=== PATIENT | male | born 1960 | race African-American/Black ===

== ENCOUNTER 2018-08-21 10:29 | Inpatient (IN) | payer OTHER ==
[2018-08-21] MEDS: SODIUM CHLORIDE 0.9% 500 ML BAG IV* (10:55)
[2018-08-21] MEDS: NORepinephrine 8MG/250 ML (PMX 250 ML IV (10:56)
[2018-08-21] MEDS: AMIODARONE 900 MG in DEXTROSE 5% 482 ML IV (11:05)
[2018-08-21] MEDS: SODIUM CHLORIDE 0.9% 1L BAG IV* (11:06)
[2018-08-21 11:14] LABS: WHITE BLOOD COUNT 14.4 10^3/ul (4.8-10.8)
[2018-08-21 11:14] LABS: ABNORMAL IP MESSAGE 1; HEMATOCRIT 21.3 % (42.0-52.0); MEAN CORPUSCULAR HEMOGLOBIN 28.6 pg (29.0-33.0); MEAN CORPUSCULAR HGB CONC 29.6 g/dl (32.0-37.0); MEAN CORPUSCULAR VOLUME 96.8 fl (82.0-101.0); MEAN PLATELET VOLUME 10.9 fl (7.4-10.4); PLATELET COUNT 322 10^3/UL (140-415); POSITIVE DIFF @See below; RED CELL DISTRIBUTION WIDTH 14.1 % (11.5-14.5)
[2018-08-21 11:22] LABS: AADO2 Arterial 377.8 mmHg (7.0-24.0); ADD MAN DIFF? YES; Allen Test ACCEPTAB; Arterial Base Excess -2.5 mmol/L (-3.0-3); Arterial Blood Gas Oxygen Sat 99.5 mmHG (95.0-98.0); Arterial COHb 0.3 % (0.0-3.0); Arterial Fraction of Oxyhgb 99.1 % (93.0-99.0); Arterial HCO3 25.4 mmol/L (22.0-26.0); Arterial MetHb 0.1 % (0.0-1.5); Arterial pCO2 59.9 mmhg (35-45); HEMOGLOBIN 6.3 g/dl (14.0-18.0); MODE VENT - AC; Site LB
[2018-08-21 11:33] LABS: PROTIME 17.4 Sec (11.9-14.9); PT RATIO 1.4
[2018-08-21 11:34] LABS: PARTIAL THROMBOPLASTIN TIME 28.5 Sec (23.0-35.0)
[2018-08-21] MEDS: PIPER-TAZO 3.375 GM IV (PMX) 100 ML IVPB ×2 (11:35→22:10)
[2018-08-21 11:36] LABS: MAGNESIUM 2.4 mg/dl (1.7-2.5)
[2018-08-21 11:36] LABS: PHOSPHORUS 9.4 mg/dl (2.5-4.9)
[2018-08-21] MEDS: VANCOMYCIN 1 GM (PMX) 250 ML IVPB (12:10)
[2018-08-21 12:14] LABS: ADD UMIC YES; UR ASCORBIC ACID 40 mg/dL (NEGATIVE); UR BILIRUBIN (Dip) NEGATIVE (NEGATIVE); UR BLOOD (Dip) 1+ mg/dL (NEGATIVE); UR CLARITY SLIGHTLY CLOUDY (CLEAR); UR COLOR YELLOW (YELLOW); UR GLUCOSE (Dip) 3+ mg/dL (NEGATIVE); UR KETONES (Dip) 1+ mg/dL (NEGATIVE); UR LEUKOCYTE ESTERASE (Dip) NEGATIVE Leu/ul (NEGATIVE); UR MUCUS FEW /HPF (NONE SEEN); UR NITRITE (Dip) NEGATIVE (NEGATIVE); UR RBC 20 /HPF (0-5); UR SPECIFIC GRAVITY (Dip) 1.017 (1.003-1.030); UR TOTAL PROTEIN (Dip) 2+ mg/dl (NEGATIVE); UR UROBILINOGEN (Dip) NEGATIVE (NEGATIVE); UR WBC 3 /HPF (0-5)
[2018-08-21 12:16] LABS: INR 1.33; PROTIME 16.7 Sec (11.9-14.9); PT RATIO 1.3
[2018-08-21 12:21] LABS: ALANINE AMINOTRANSFERASE 121 IU/L (13-69); ALBUMIN 2.1 g/dl (3.3-4.9); ALBUMIN/GLOBULIN RATIO 0.61; ALKALINE PHOSPHATASE 144 IU/L (42-121); AMYLASE 42 U/L (11-123); ANION GAP 15 (5-13); ASPARTATE AMINO TRANSFERASE 394 IU/L (15-46); BILIRUBIN,INDIRECT 0.1 mg/dl (0-1.1); BILIRUBIN,TOTAL 0.1 mg/dl (0.2-1.3); BLOOD UREA NITROGEN 24 mg/dl (7-20); CALCIUM 9.6 mg/dl (8.4-10.2); CARBON DIOXIDE 27 mmol/L (21-31); CHLORIDE 94 mmol/L (97-110); CREATININE 0.62 mg/dl (0.61-1.24); Estimated GFR > 60 mL/min (>60); LIPASE 115 U/L (23-300); POTASSIUM 4.8 mmol/L (3.5-5.1); SODIUM 136 mmol/L (135-144); TOTAL PROTEIN 5.5 g/dl (6.1-8.1)
[2018-08-21 12:28] LABS: GLUCOSE 406 mg/dl (70-220)
[2018-08-21 12:32] LABS: ANISOCYTOSIS 1+ (0-0); BAND NEUTROPHILS #M 2.1 10^3/ul (0.0-0.6); BAND NEUTROPHILS % (M) 15 % (0-4); BASOPHIL #M 0.1 10^3/ul (0.0-0.0); BASOPHILS % (M) 1 % (0-2); EOSINOPHILS % (M) 1 % (0-7); GIANT THROMBO% (M) 1 % (0-0); LYMPHOCYTES #M 1.7 10^3/ul (0.8-2.9); LYMPHOCYTES % (M) 12 % (15-51); METAMYELOCYTES #M 0.1 10^3/ul (0.0-0.0); METAMYELOCYTES %M 1 % (0-0); MONOCYTE #M 0.2 10^3/ul (0.3-0.9); MONOCYTES % (M) 2 % (0-11); MYELOCYTES #M 0.1 10^3/ul (0.0-0.0); MYELOCYTES % (M) 1 % (0-0); PLATELET ESTIMATE NORMAL; POLYCHROMASIA 2+ (0-0); SEGMENTED NEUTROPHILS (M) % 67 % (39-77); SMUDGE%M 76 % (0-0); TOXIC GRANULATION 1+ (0-0)
[2018-08-21 12:33] LABS: TROPONIN-I < 0.012 ng/ml (0.000-0.120)
[2018-08-21 13:28] LABS: IMMEDIATE SPIN CROSSMATCH 1 2
[2018-08-21] MEDS ORDERED: NACL 0.9% 3 ML SYG IV (13:30)
[2018-08-21] MEDS: SOD CHLORIDE 0.9% 1,000 ML IV (14:42)
[2018-08-21] MEDS: HEPARIN 5,000 UNIT/0.5 ML VIAL SC (14:47)
[2018-08-21] MEDS ORDERED: VANCOMYCIN IV PER PHARMACY XX (16:00)
[2018-08-21] MEDS ORDERED: GLUCAGON 1 MG INJ IM (18:00)
[2018-08-21] MEDS ORDERED: GLUCOSE GEL 15 GRAM TUBE BUCCAL (18:00)
[2018-08-21] MEDS ORDERED: GLUCOSE GEL 15 GRAM TUBE PO ×2 (18:00)
[2018-08-21] MEDS ORDERED: PENDING SANTYL ORDER FOR WOUND CARE XX (18:30)
[2018-08-21 18:56] LABS: WHITE BLOOD COUNT 18.1 10^3/ul (4.8-10.8)
[2018-08-21 18:56] LABS: ABNORMAL IP MESSAGE 1; HEMATOCRIT 23.2 % (42.0-52.0); HEMOGLOBIN 7.2 g/dl (14.0-18.0); MEAN CORPUSCULAR VOLUME 90.3 fl (82.0-101.0); MEAN PLATELET VOLUME 10.9 fl (7.4-10.4); PLATELET COUNT 321 10^3/UL (140-415); POSITIVE DIFF @See below; RED BLOOD COUNT 2.57 10^6/ul (4.70-6.10); RED CELL DISTRIBUTION WIDTH 13.9 % (11.5-14.5)
[2018-08-21] MEDS: INSULIN ASPART [NOVOLOG] 3 ML PEN SC ×2 (19:04→21:03)
[2018-08-21 19:10] LABS: ADD MAN DIFF? YES
[2018-08-21 20:23] LABS: BAND NEUTROPHILS #M 4.7 10^3/ul (0.0-0.6); BAND NEUTROPHILS % (M) 26 % (0-4); GIANT THROMBO% (M) 3 % (0-0); LYMPHOCYTES #M 0.9 10^3/ul (0.8-2.9); LYMPHOCYTES % (M) 5 % (15-51); MONOCYTE #M 0.3 10^3/ul (0.3-0.9); MONOCYTES % (M) 2 % (0-11); PLATELET ESTIMATE NORMAL; POLYCHROMASIA 2+ (0-0); SEGMENTED NEUTROPHILS (M) % 67 % (39-77); SMUDGE%M 2 % (0-0)
[2018-08-21] MEDS ORDERED: HEPARIN 5,000 UNIT/0.5 ML VIAL (20:45)
[2018-08-21] MEDS: ATORVASTATIN 10 MG TAB PO (20:57)
[2018-08-21] MEDS: HEPARIN 5,000 UNIT/1 ML VIAL SC (20:58)
[2018-08-22] MEDS: VANCOMYCIN 1 GM 250 ML IVPB ×2 (00:03→12:30)
[2018-08-22] MEDS: ACCU-CHEK XX (00:55)
[2018-08-22] MEDS: INSULIN ASPART [NOVOLOG] 3 ML PEN SC ×5 (04:33→21:00)
[2018-08-22 05:02] LABS: ABNORMAL IP MESSAGE 1; HEMATOCRIT 20.7 % (42.0-52.0); MEAN CORPUSCULAR HGB CONC 31.9 g/dl (32.0-37.0); MEAN CORPUSCULAR VOLUME 87.7 fl (82.0-101.0); MEAN PLATELET VOLUME 10.8 fl (7.4-10.4); PLATELET COUNT 297 10^3/UL (140-415); POSITIVE DIFF @See below; RED BLOOD COUNT 2.36 10^6/ul (4.70-6.10); RED CELL DISTRIBUTION WIDTH 14.2 % (11.5-14.5)
[2018-08-22 05:31] LABS: ADD MAN DIFF? YES
[2018-08-22 05:32] LABS: HEMOGLOBIN 6.6 g/dl (14.0-18.0)
[2018-08-22 05:35] LABS: ALANINE AMINOTRANSFERASE 82 IU/L (13-69); ALBUMIN 2.3 g/dl (3.3-4.9); ALBUMIN/GLOBULIN RATIO 0.67; ALKALINE PHOSPHATASE 154 IU/L (42-121); ANION GAP 7 (5-13); ASPARTATE AMINO TRANSFERASE 152 IU/L (15-46); BILIRUBIN,INDIRECT 0.3 mg/dl (0-1.1); BILIRUBIN,TOTAL 0.3 mg/dl (0.2-1.3); BLOOD UREA NITROGEN 32 mg/dl (7-20); CALCIUM 8.2 mg/dl (8.4-10.2); CARBON DIOXIDE 34 mmol/L (21-31); CHLORIDE 97 mmol/L (97-110); CREATININE 0.75 mg/dl (0.61-1.24); Estimated GFR > 60 mL/min (>60); GLUCOSE 298 mg/dl (70-220); PHOSPHORUS 3.8 mg/dl (2.5-4.9); POTASSIUM 4.4 mmol/L (3.5-5.1); SODIUM 138 mmol/L (135-144); TOTAL PROTEIN 5.7 g/dl (6.1-8.1)
[2018-08-22] MEDS: PIPER-TAZO 3.375 GM IV (PMX) 100 ML IVPB ×3 (05:56→21:46)
[2018-08-22] MEDS: PANTOPRAZOLE 40 MG INJ IV (05:57)
[2018-08-22] MEDS: SOD CHLORIDE 0.9% 1,000 ML IV ×2 (05:57→21:38)
[2018-08-22 06:43] LABS: ANISOCYTOSIS 1+ (0-0); BAND NEUTROPHILS #M 1.4 10^3/ul (0.0-0.6); BAND NEUTROPHILS % (M) 10 % (0-4); LYMPHOCYTES #M 0.1 10^3/ul (0.8-2.9); LYMPHOCYTES % (M) 1 % (15-51); MONOCYTE #M 0.1 10^3/ul (0.3-0.9); MONOCYTES % (M) 1 % (0-11); PLATELET ESTIMATE NORMAL; POLYCHROMASIA 3+ (0-0); SEG NEUT #M 12.5 10^3/ul (1.6-7.5); SEGMENTED NEUTROPHILS (M) % 88 % (39-77); SMUDGE%M 2 % (0-0)
[2018-08-22 07:51] LABS: HEMOGLOBIN A1C 7.4 % (0-5.9)
[2018-08-22] MEDS ORDERED: HEPARIN 5,000 UNIT/0.5 ML VIAL ×2 (08:33→21:16)
[2018-08-22] MEDS: LEVETIRACETAM 500 MG TAB PO (09:09)
[2018-08-22] MEDS: HEPARIN 5,000 UNIT/1 ML VIAL SC ×2 (09:26→21:40)
[2018-08-22 10:27] LABS: IRON 13 ug/dl (35-150)
[2018-08-22] MEDS ORDERED: COLLAGENASE 5 GM (UD JAR) TOP (10:30)
[2018-08-22 10:36] LABS: % IRON SATURATION 10 % SAT (22-52); TOTAL IRON BINDING CAPACITY 131 ug/dl (241-421)
[2018-08-22] MEDS: INSULIN GLARGINE [LANTus] (100 UNITS/ML) SYG SC (10:48)
[2018-08-22 12:25] LABS: ADD MAN DIFF? NO
[2018-08-22 12:26] LABS: BASOPHIL # 0.1 10^3/ul (0.0-0.1); BASOPHILS % 0.3 % (0.0-2.0); HEMATOCRIT 25.3 % (42.0-52.0); HEMOGLOBIN 8.3 g/dl (14.0-18.0); LYMPHOCYTES # 0.7 10^3/ul (0.8-2.9); LYMPHOCYTES % 4.9 % (15.0-51.0); MEAN CORPUSCULAR HGB CONC 32.8 g/dl (32.0-37.0); MEAN CORPUSCULAR VOLUME 88.5 fl (82.0-101.0); MEAN PLATELET VOLUME 10.7 fl (7.4-10.4); MONOCYTE # 0.8 10^3/ul (0.3-0.9); MONOCYTES % 5.3 % (0.0-11.0); NEUTROPHIL # 13.2 10^3/ul (1.6-7.5); PLATELET COUNT 262 10^3/UL (140-415); POSITIVE DIFF @See below; RED BLOOD COUNT 2.86 10^6/ul (4.70-6.10); RED CELL DISTRIBUTION WIDTH 13.8 % (11.5-14.5)
[2018-08-22 12:26] LABS: WHITE BLOOD COUNT 14.8 10^3/ul (4.8-10.8)
[2018-08-22] MEDS: PENDING SANTYL ORDER FOR WOUND CARE XX (12:30)
[2018-08-22] MEDS: COLLAGENASE 5 GM (UD JAR) TOP (12:41)
[2018-08-22] MEDS: ATORVASTATIN 10 MG TAB PO (21:46)
[2018-08-22 23:40] LABS: VANCOMYCIN,TROUGH 27.6 ug/ml (10.0-20.0)
[2018-08-23] MEDS: INSULIN ASPART [NOVOLOG] 3 ML PEN SC ×6 (01:00→20:00)
[2018-08-23] MEDS: ACCU-CHEK XX (02:25)
[2018-08-23] MEDS: PANTOPRAZOLE 40 MG INJ IV (05:56)
[2018-08-23] MEDS: SOD CHLORIDE 0.9% 1,000 ML IV ×2 (05:56→19:36)
[2018-08-23] MEDS: PIPER-TAZO 3.375 GM IV (PMX) 100 ML IVPB ×3 (05:56→21:11)
[2018-08-23 08:26] LABS: ABNORMAL IP MESSAGE 1; HEMOGLOBIN 8.8 g/dl (14.0-18.0); MEAN CORPUSCULAR HEMOGLOBIN 28.4 pg (29.0-33.0); MEAN CORPUSCULAR HGB CONC 32.6 g/dl (32.0-37.0); MEAN CORPUSCULAR VOLUME 87.1 fl (82.0-101.0); MEAN PLATELET VOLUME 10.8 fl (7.4-10.4); PLATELET COUNT 281 10^3/UL (140-415); POSITIVE DIFF @See below; RED CELL DISTRIBUTION WIDTH 14.5 % (11.5-14.5)
[2018-08-23 08:26] LABS: WHITE BLOOD COUNT 21.8 10^3/ul (4.8-10.8)
[2018-08-23 08:28] LABS: ADD MAN DIFF? YES
[2018-08-23] MEDS ORDERED: COLLAGENASE 5 GM (UD JAR) TOP (08:30)
[2018-08-23 08:51] LABS: ANION GAP 6 (5-13); BLOOD UREA NITROGEN 34 mg/dl (7-20); CALCIUM 7.9 mg/dl (8.4-10.2); CARBON DIOXIDE 36 mmol/L (21-31); CHLORIDE 102 mmol/L (97-110); CREATININE 0.96 mg/dl (0.61-1.24); Estimated GFR > 60 mL/min (>60); GLUCOSE 118 mg/dl (70-220); POTASSIUM 3.1 mmol/L (3.5-5.1); SODIUM 144 mmol/L (135-144)
[2018-08-23] MEDS ORDERED: HEPARIN 5,000 UNIT/0.5 ML VIAL (08:51)
[2018-08-23] MEDS: LEVETIRACETAM 500 MG TAB PO (09:30)
[2018-08-23] MEDS: COLLAGENASE 5 GM (UD JAR) TOP (09:30)
[2018-08-23] MEDS: INSULIN GLARGINE [LANTus] (100 UNITS/ML) SYG SC (09:33)
[2018-08-23] MEDS: HEPARIN 5,000 UNIT/1 ML VIAL SC ×2 (09:34→20:36)
[2018-08-23] MEDS: PENDING SANTYL ORDER FOR WOUND CARE XX (09:35)
[2018-08-23 09:44] LABS: BAND NEUTROPHILS #M 7.4 10^3/ul (0.0-0.6); BAND NEUTROPHILS % (M) 34 % (0-4); LYMPHOCYTES #M 0.8 10^3/ul (0.8-2.9); LYMPHOCYTES % (M) 4 % (15-51); MONOCYTE #M 0.4 10^3/ul (0.3-0.9); MONOCYTES % (M) 2 % (0-11); PLATELET ESTIMATE NORMAL; POLYCHROMASIA 1+ (0-0); SEG NEUT #M 14.7 10^3/ul (1.6-7.5); SEGMENTED NEUTROPHILS (M) % 60 % (39-77); SMUDGE%M 3 % (0-0); TARGET CELLS 1+ (0-0)
[2018-08-23] MEDS: LIDOCAINE 1% (MPF) 5 ML VIAL SC (11:30)
[2018-08-23] MEDS: POTASSIUM CHLORIDE 20 MEQ POWDER FOR ORAL SOLN PO (13:18)
[2018-08-23] MEDS: VANCOMYCIN 1 GM 250 ML IVPB (13:18)
[2018-08-23] MEDS: ATORVASTATIN 10 MG TAB PO (20:33)
[2018-08-23] MEDS: SODIUM HYPOCHLORITE (1/40) 1 APPLIC BTL IRR (21:11)
[2018-08-24] MEDS: INSULIN ASPART [NOVOLOG] 3 ML PEN SC ×6 (00:35→20:35)
[2018-08-24] MEDS: DEXTROSE 50% 50 ML SYRINGE IV (00:39)
[2018-08-24] MEDS: ACCU-CHEK XX (02:14)
[2018-08-24] MEDS: DEXTROSE 5%-0.45% NACL 1,000 ML IV (03:44)
[2018-08-24] MEDS: PANTOPRAZOLE 40 MG INJ IV (05:04)
[2018-08-24] MEDS: PIPER-TAZO 3.375 GM IV (PMX) 100 ML IVPB (05:04)
[2018-08-24 05:27] LABS: ADD MAN DIFF? NO
[2018-08-24 05:34] LABS: ABNORMAL IP MESSAGE 1; BASOPHILS % 0.2 % (0.0-2.0); EOSINOPHILS % 0.1 % (0.0-7.0); HEMATOCRIT 25.5 % (42.0-52.0); LYMPHOCYTES # 0.4 10^3/ul (0.8-2.9); LYMPHOCYTES % 2.6 % (15.0-51.0); MEAN CORPUSCULAR HGB CONC 31.4 g/dl (32.0-37.0); MEAN CORPUSCULAR VOLUME 89.2 fl (82.0-101.0); MEAN PLATELET VOLUME 11.1 fl (7.4-10.4); MONOCYTE # 0.3 10^3/ul (0.3-0.9); MONOCYTES % 2.2 % (0.0-11.0); NEUTROPHIL # 13.7 10^3/ul (1.6-7.5); PLATELET COUNT 229 10^3/UL (140-415); POSITIVE DIFF @See below; RED BLOOD COUNT 2.86 10^6/ul (4.70-6.10); RED CELL DISTRIBUTION WIDTH 14.5 % (11.5-14.5)
[2018-08-24 06:06] LABS: NEUTROPHILS % 94.2 % (39.0-77.0)
[2018-08-24 06:06] LABS: WHITE BLOOD COUNT 14.5 10^3/ul (4.8-10.8)
[2018-08-24 06:13] LABS: MAGNESIUM 2.3 mg/dl (1.7-2.5)
[2018-08-24 06:13] LABS: PHOSPHORUS 3.4 mg/dl (2.5-4.9)
[2018-08-24 06:21] LABS: BLOOD UREA NITROGEN 38 mg/dl (7-20); CALCIUM 7.8 mg/dl (8.4-10.2); CARBON DIOXIDE 32 mmol/L (21-31); CREATININE 1.21 mg/dl (0.61-1.24); Estimated GFR > 60 mL/min (>60); GLUCOSE 67 mg/dl (70-220)
[2018-08-24 07:08] LABS: ANION GAP 8 (5-13); CHLORIDE 107 mmol/L (97-110); POTASSIUM 3.6 mmol/L (3.5-5.1)
[2018-08-24 07:11] LABS: SODIUM 147 mmol/L (135-144)
[2018-08-24 09:09] LABS: ANISOCYTOSIS 1+ (0-0); BAND NEUTROPHILS #M 6.8 10^3/ul (0.0-0.6); BAND NEUTROPHILS % (M) 47 % (0-4); BURR CELLS 2+ (0-0); GIANT THROMBO% (M) 3 % (0-0); HYPOCHROMASIA 1+ (0-0); LYMPHOCYTES #M 0.7 10^3/ul (0.8-2.9); LYMPHOCYTES % (M) 5 % (15-51); MONOCYTE #M 0.2 10^3/ul (0.3-0.9); MONOCYTES % (M) 2 % (0-11); PLATELET ESTIMATE NORMAL; POIKILOCYTOSIS 1+ (0-0); POLYCHROMASIA 1+ (0-0); SEG NEUT #M 7.7 10^3/ul (1.6-7.5); SEGMENTED NEUTROPHILS (M) % 46 % (39-77); SMUDGE%M 4 % (0-0)
[2018-08-24] MEDS: LEVETIRACETAM 500 MG TAB PO (10:02)
[2018-08-24] MEDS: COLLAGENASE 5 GM (UD JAR) TOP (10:02)
[2018-08-24] MEDS: HEPARIN 5,000 UNIT/1 ML VIAL SC ×2 (10:04→20:37)
[2018-08-24] MEDS: SODIUM HYPOCHLORITE (1/40) 1 APPLIC BTL IRR ×2 (10:04→20:38)
[2018-08-24] MEDS: POVIDONE IODINE 10% 28.4 GM OINT TOP (10:05)
[2018-08-24] MEDS: LINEZOLID 600 MG/D5W (PMX) 300 ML IVPB ×2 (14:34→20:32)
[2018-08-24] MEDS: BETADINE SOLUTION TOP (17:00)
[2018-08-24] MEDS: CEFEPIME 1GM/50 ML (PMX) 50 ML IVPB (20:32)
[2018-08-24] MEDS: ATORVASTATIN 10 MG TAB PO (20:32)
[2018-08-25] MEDS: INSULIN ASPART [NOVOLOG] 3 ML PEN SC ×6 (00:47→20:40)
[2018-08-25] MEDS: ACCU-CHEK XX (02:18)
[2018-08-25 05:18] LABS: WHITE BLOOD COUNT 9.3 10^3/ul (4.8-10.8)
[2018-08-25 05:18] LABS: ABNORMAL IP MESSAGE 1; HEMATOCRIT 25.6 % (42.0-52.0); MEAN CORPUSCULAR HEMOGLOBIN 28.3 pg (29.0-33.0); MEAN CORPUSCULAR HGB CONC 31.3 g/dl (32.0-37.0); MEAN CORPUSCULAR VOLUME 90.5 fl (82.0-101.0); MEAN PLATELET VOLUME 10.8 fl (7.4-10.4); PLATELET COUNT 163 10^3/UL (140-415); POSITIVE DIFF @See below; RED BLOOD COUNT 2.83 10^6/ul (4.70-6.10); RED CELL DISTRIBUTION WIDTH 14.8 % (11.5-14.5)
[2018-08-25 05:32] LABS: ADD MAN DIFF? YES
[2018-08-25 05:54] LABS: ANION GAP 7 (5-13); BLOOD UREA NITROGEN 48 mg/dl (7-20); CALCIUM 7.8 mg/dl (8.4-10.2); CARBON DIOXIDE 33 mmol/L (21-31); CHLORIDE 106 mmol/L (97-110); CREATININE 1.19 mg/dl (0.61-1.24); Estimated GFR > 60 mL/min (>60); POTASSIUM 3.7 mmol/L (3.5-5.1); SODIUM 146 mmol/L (135-144)
[2018-08-25 05:55] LABS: MAGNESIUM 2.4 mg/dl (1.7-2.5)
[2018-08-25 05:55] LABS: PHOSPHORUS 3.8 mg/dl (2.5-4.9)
[2018-08-25] MEDS: DEXTROSE 5%-0.45% NACL 1,000 ML IV (06:00)
[2018-08-25 06:02] LABS: GLUCOSE 213 mg/dl (70-220)
[2018-08-25 07:33] LABS: ANISOCYTOSIS 1+ (0-0); BAND NEUTROPHILS #M 3.8 10^3/ul (0.0-0.6); BAND NEUTROPHILS % (M) 41 % (0-4); EOSINOPHILS % (M) 1 % (0-7); HYPOCHROMASIA 1+ (0-0); LYMPHOCYTES #M 0.1 10^3/ul (0.8-2.9); LYMPHOCYTES % (M) 2 % (15-51); PLATELET ESTIMATE NORMAL; POLYCHROMASIA 1+ (0-0); SEG NEUT #M 5.6 10^3/ul (1.6-7.5); SEGMENTED NEUTROPHILS (M) % 56 % (39-77); SMUDGE%M 4 % (0-0)
[2018-08-25] MEDS: LEVETIRACETAM 500 MG TAB PO (08:51)
[2018-08-25] MEDS: FAMOTIDINE 20 MG TAB GTB (08:52)
[2018-08-25] MEDS: LINEZOLID 600 MG/D5W (PMX) 300 ML IVPB ×2 (08:53→21:19)
[2018-08-25] MEDS: CEFEPIME 1GM/50 ML (PMX) 50 ML IVPB ×2 (08:53→20:25)
[2018-08-25] MEDS: SODIUM HYPOCHLORITE (1/40) 1 APPLIC BTL IRR ×2 (08:59→20:40)
[2018-08-25] MEDS: BETADINE SOLUTION TOP (09:00)
[2018-08-25] MEDS: COLLAGENASE 5 GM (UD JAR) TOP (09:19)
[2018-08-25] MEDS: metroNIDAZOLE 500 MG/NS (PMX) 100 ML IVPB ×2 (15:51→22:00)
[2018-08-25] MEDS: ATORVASTATIN 10 MG TAB PO (20:29)
[2018-08-26] MEDS: INSULIN ASPART [NOVOLOG] 3 ML PEN SC ×6 (00:31→20:27)
[2018-08-26] MEDS: ACCU-CHEK XX (00:31)
[2018-08-26] MEDS: metroNIDAZOLE 500 MG/NS (PMX) 100 ML IVPB ×3 (05:13→23:05)
[2018-08-26] MEDS: DEXTROSE 5%-0.45% NACL 1,000 ML IV (05:13)
[2018-08-26 06:01] LABS: WHITE BLOOD COUNT 6.9 10^3/ul (4.8-10.8)
[2018-08-26 06:01] LABS: ABNORMAL IP MESSAGE 1; HEMATOCRIT 26.9 % (42.0-52.0); HEMOGLOBIN 8.4 g/dl (14.0-18.0); MEAN CORPUSCULAR HEMOGLOBIN 28.3 pg (29.0-33.0); MEAN CORPUSCULAR HGB CONC 31.2 g/dl (32.0-37.0); MEAN CORPUSCULAR VOLUME 90.6 fl (82.0-101.0); MEAN PLATELET VOLUME 11.7 fl (7.4-10.4); PLATELET COUNT 136 10^3/UL (140-415); POSITIVE DIFF @See below; RED BLOOD COUNT 2.97 10^6/ul (4.70-6.10); RED CELL DISTRIBUTION WIDTH 14.7 % (11.5-14.5)
[2018-08-26 06:05] LABS: ADD MAN DIFF? YES
[2018-08-26 06:22] LABS: ANION GAP 6 (5-13); BLOOD UREA NITROGEN 47 mg/dl (7-20); CALCIUM 7.7 mg/dl (8.4-10.2); CARBON DIOXIDE 33 mmol/L (21-31); CHLORIDE 105 mmol/L (97-110); Estimated GFR > 60 mL/min (>60); GLUCOSE 162 mg/dl (70-220); MAGNESIUM 2.4 mg/dl (1.7-2.5); PHOSPHORUS 3.7 mg/dl (2.5-4.9); POTASSIUM 3.5 mmol/L (3.5-5.1); SODIUM 144 mmol/L (135-144)
[2018-08-26] MEDS: LEVETIRACETAM 500 MG TAB PO (08:15)
[2018-08-26] MEDS: CEFEPIME 1GM/50 ML (PMX) 50 ML IVPB ×2 (08:15→20:26)
[2018-08-26] MEDS: FAMOTIDINE 20 MG TAB GTB (08:15)
[2018-08-26] MEDS: LINEZOLID 600 MG/D5W (PMX) 300 ML IVPB ×2 (08:15→21:19)
[2018-08-26] MEDS: INSULIN GLARGINE [LANTus] (100 UNITS/ML) SYG SC (08:19)
[2018-08-26] MEDS: SODIUM HYPOCHLORITE (1/40) 1 APPLIC BTL IRR ×2 (08:21→20:28)
[2018-08-26] MEDS: COLLAGENASE 5 GM (UD JAR) TOP (08:23)
[2018-08-26] MEDS: BETADINE SOLUTION TOP (08:23)
[2018-08-26 11:38] LABS: AADO2 Arterial 178.2 mmHg (7.0-24.0); Arterial Base Excess 4.5 mmol/L (-3.0-3); Arterial Blood Gas Oxygen Sat 89.8 mmHG (95.0-98.0); Arterial COHb 0.3 % (0.0-3.0); Arterial Fraction of Oxyhgb 89.4 % (93.0-99.0); Arterial HCO3 29.1 mmol/L (22.0-26.0); Arterial MetHb 0.1 % (0.0-1.5); Arterial pCO2 43.4 mmhg (35-45); MODE VENT - AC; Site Right Radial
[2018-08-26 12:52] LABS: ANISOCYTOSIS 1+ (0-0); BAND NEUTROPHILS #M 4.8 10^3/ul (0.0-0.6); BAND NEUTROPHILS % (M) 71 % (0-4); LYMPHOCYTES #M 0.3 10^3/ul (0.8-2.9); LYMPHOCYTES % (M) 5 % (15-51); METAMYELOCYTES #M 0.3 10^3/ul (0.0-0.0); METAMYELOCYTES %M 5 % (0-0); MONOCYTE #M 0.1 10^3/ul (0.3-0.9); MONOCYTES % (M) 2 % (0-11); PLATELET ESTIMATE DECREASED; POIKILOCYTOSIS 1+ (0-0); POLYCHROMASIA 1+ (0-0); SEG NEUT #M 1.5 10^3/ul (1.6-7.5); SEGMENTED NEUTROPHILS (M) % 17 % (39-77); SMUDGE%M 1 % (0-0); SPHEROCYTES 1+ (0-0)
[2018-08-26] MEDS: SOD CHLORIDE 0.9% 250 ML IV (15:02)
[2018-08-26] MEDS ORDERED: NORepinephrine 8MG/250 ML (PMX 250 ML (16:42)
[2018-08-26] MEDS: NORepinephrine 8MG/250 ML (PMX 250 ML IV (17:13)
[2018-08-26] MEDS: ALTEPLASE (CATHFLO) 2 MG INJ CATHETER (17:28)
[2018-08-26] MEDS: DEXTROSE 50% 50 ML SYRINGE IV ×2 (17:32→17:51)
[2018-08-26] MEDS: ATORVASTATIN 10 MG TAB PO (20:26)
[2018-08-26 21:25] LABS: ANION GAP 8 (5-13); BLOOD UREA NITROGEN 51 mg/dl (7-20); CALCIUM 7.4 mg/dl (8.4-10.2); CARBON DIOXIDE 27 mmol/L (21-31); CHLORIDE 104 mmol/L (97-110); CREATININE 1.35 mg/dl (0.61-1.24); Estimated GFR > 60 mL/min (>60); GLUCOSE 86 mg/dl (70-220); POTASSIUM 3.2 mmol/L (3.5-5.1); SODIUM 139 mmol/L (135-144)
[2018-08-26] MEDS ORDERED: PHENYLephrine 20MG IN 250 ML 250 ML IV (21:30)
[2018-08-26 21:51] LABS: AADO2 Arterial 497.1 mmHg (7.0-24.0); Allen Test ACCEPTAB; Arterial Base Excess -2.7 mmol/L (-3.0-3); Arterial Blood Gas Oxygen Sat 98.4 mmHG (95.0-98.0); Arterial COHb 0.3 % (0.0-3.0); Arterial Fraction of Oxyhgb 97.8 % (93.0-99.0); Arterial MetHb 0.3 % (0.0-1.5); Arterial pCO2 69.2 mmhg (35-45); MODE VENT - AC; Site Left Radial
[2018-08-26] MEDS: SOD CHLORIDE 0.9% 1,000 ML IV (22:12)
[2018-08-27 00:02] LABS: Allen Test ACCEPTAB; Arterial Base Excess -4.5 mmol/L (-3.0-3); Arterial Blood Gas Oxygen Sat 98.6 mmHG (95.0-98.0); Arterial COHb 0.3 % (0.0-3.0); Arterial HCO3 23.5 mmol/L (22.0-26.0); Arterial MetHb 0.3 % (0.0-1.5); MODE VENT - AC; Site Left Radial
[2018-08-27] MEDS: INSULIN ASPART [NOVOLOG] 3 ML PEN SC ×4 (01:00→13:00)
[2018-08-27] MEDS: DEXTROSE 50% 50 ML SYRINGE IV ×2 (01:22→08:58)
[2018-08-27] MEDS: ACCU-CHEK XX (01:24)
[2018-08-27] MEDS: DEXTROSE 5%-0.45% NACL 1,000 ML IV ×2 (03:30→07:00)
[2018-08-27] MEDS: PHENYLephrine 40 MG in DEXTROSE 5% 496 ML IV ×2 (04:24→09:14)
[2018-08-27] MEDS: metroNIDAZOLE 500 MG/NS (PMX) 100 ML IVPB (05:16)
[2018-08-27 05:41] LABS: WHITE BLOOD COUNT 1.7 10^3/ul (4.8-10.8)
[2018-08-27 05:41] LABS: ABNORMAL IP MESSAGE 1; HEMATOCRIT 23.4 % (42.0-52.0); MEAN CORPUSCULAR HEMOGLOBIN 28.3 pg (29.0-33.0); MEAN CORPUSCULAR HGB CONC 29.9 g/dl (32.0-37.0); MEAN CORPUSCULAR VOLUME 94.7 fl (82.0-101.0); MEAN PLATELET VOLUME 12.6 fl (7.4-10.4); NUCLEATED RED BLOOD CELLS% 2.3 /100WBC (0.0-0.0); PLATELET COUNT 49 10^3/UL (140-415); POSITIVE DIFF @See below; RED BLOOD COUNT 2.47 10^6/ul (4.70-6.10); RED CELL DISTRIBUTION WIDTH 14.9 % (11.5-14.5)
[2018-08-27 05:45] LABS: ADD MAN DIFF? YES
[2018-08-27 05:56] LABS: ANION GAP 15 (5-13); BLOOD UREA NITROGEN 53 mg/dl (7-20); CARBON DIOXIDE 21 mmol/L (21-31); CHLORIDE 106 mmol/L (97-110); CREATININE 1.45 mg/dl (0.61-1.24); Estimated GFR > 60 mL/min (>60); GLUCOSE 62 mg/dl (70-220); POTASSIUM 3.6 mmol/L (3.5-5.1); SODIUM 142 mmol/L (135-144)
[2018-08-27 06:00] LABS: PHOSPHORUS 4.6 mg/dl (2.5-4.9)
[2018-08-27 06:00] LABS: MAGNESIUM 2.2 mg/dl (1.7-2.5)
[2018-08-27 07:16] LABS: AADO2 Arterial 575.8 mmHg (7.0-24.0); Arterial Base Excess -11.4 mmol/L (-3.0-3); Arterial Blood Gas Oxygen Sat 91.9 mmHG (95.0-98.0); Arterial COHb 0.4 % (0.0-3.0); Arterial Fraction of Oxyhgb 91.3 % (93.0-99.0); Arterial HCO3 17.9 mmol/L (22.0-26.0); Arterial MetHb 0.3 % (0.0-1.5); Arterial pCO2 61.2 mmhg (35-45); MODE VENT - AC; Site Right Brachial
[2018-08-27] MEDS ORDERED: PHENYLephrine 20MG IN 250 ML 250 ML (07:37)
[2018-08-27] MEDS: INSULIN GLARGINE [LANTus] (100 UNITS/ML) SYG SC (08:00)
[2018-08-27 08:01] LABS: ANISOCYTOSIS 1+ (0-0); BAND NEUTROPHILS #M 0.1 10^3/ul (0.0-0.6); BAND NEUTROPHILS % (M) 6 % (0-4); BURR CELLS 2+ (0-0); EOSINOPHILS % (M) 1 % (0-7); ERYTHROBLAST% (NRBC) (M) 14 % (0-0); GIANT THROMBO% (M) 1 % (0-0); LYMPHOCYTES #M 0.4 10^3/ul (0.8-2.9); LYMPHOCYTES % (M) 24 % (15-51); MONOCYTES % (M) 3 % (0-11); MYELOCYTES % (M) 1 % (0-0); PLATELET ESTIMATE DECREASED; POIKILOCYTOSIS 2+ (0-0); POLYCHROMASIA 3+ (0-0); SEG NEUT #M 1.1 10^3/ul (1.6-7.5); SEGMENTED NEUTROPHILS (M) % 66 % (39-77); SMUDGE%M 26 % (0-0)
[2018-08-27] MEDS: LEVETIRACETAM 500 MG TAB PO (09:14)
[2018-08-27] MEDS: FAMOTIDINE 20 MG TAB GTB (09:14)
[2018-08-27] MEDS: SODIUM HYPOCHLORITE (1/40) 1 APPLIC BTL IRR (09:15)
[2018-08-27] MEDS: BETADINE SOLUTION TOP (09:16)
[2018-08-27] MEDS: COLLAGENASE 5 GM (UD JAR) TOP (09:16)
[2018-08-27] MEDS: LINEZOLID 600 MG/D5W (PMX) 300 ML IVPB (09:16)
[2018-08-27] MEDS: CEFEPIME 1GM/50 ML (PMX) 50 ML IVPB (09:16)
[2018-08-27] MEDS: VASOPRESSIN 60 UNIT in DEXTROSE 5% 57 ML IV (10:33)
[2018-08-27 10:44] LABS: WHITE BLOOD COUNT 1.4 10^3/ul (4.8-10.8)
[2018-08-27 10:44] LABS: ABNORMAL IP MESSAGE 1; HEMATOCRIT 22.9 % (42.0-52.0); MEAN CORPUSCULAR HEMOGLOBIN 27.8 pg (29.0-33.0); MEAN CORPUSCULAR HGB CONC 28.8 g/dl (32.0-37.0); MEAN CORPUSCULAR VOLUME 96.6 fl (82.0-101.0); MEAN PLATELET VOLUME 13.2 fl (7.4-10.4); NUCLEATED RED BLOOD CELLS% 2.2 /100WBC (0.0-0.0); POSITIVE DIFF @See below; RED BLOOD COUNT 2.37 10^6/ul (4.70-6.10); RED CELL DISTRIBUTION WIDTH 15.3 % (11.5-14.5)
[2018-08-27 10:49] LABS: HEMOGLOBIN 6.6 g/dl (14.0-18.0)
[2018-08-27 10:50] LABS: PLATELET COUNT 21 10^3/UL (140-415)
[2018-08-27 10:51] LABS: ADD MAN DIFF? YES; PATH REVIEW? YES
[2018-08-27 11:04] LABS: INR 1.83; PROTIME 21.6 Sec (11.9-14.9); PT RATIO 1.7
[2018-08-27 11:05] LABS: PARTIAL THROMBOPLASTIN TIME 47.6 Sec (23.0-35.0)
[2018-08-27 11:05] LABS: PLATELET COUNT 21 10^3/UL (140-415)
[2018-08-27 11:06] LABS: THROMBIN TIME 16.8 SEC (13.8-19.1)
[2018-08-27 11:43] LABS: D-DIMER 4110.54 ng/ml (<460)
[2018-08-27 11:46] LABS: FIBRIN SPLIT PRODUCT >10 and <40 ug/ml (<10)
[2018-08-27 12:12] LABS: LACTIC ACID 12.3 mmol/L (0.5-2.0)
[2018-08-27 12:55] LABS: ANISOCYTOSIS 1+ (0-0); BAND NEUTROPHILS #M 0.1 10^3/ul (0.0-0.6); BAND NEUTROPHILS % (M) 11 % (0-4); BURR CELLS 2+ (0-0); EOSINOPHILS % (M) 2 % (0-7); ERYTHROBLAST% (NRBC) (M) 8 % (0-0); GIANT THROMBO% (M) 4 % (0-0); LYMPHOCYTES #M 0.3 10^3/ul (0.8-2.9); LYMPHOCYTES % (M) 24 % (15-51); METAMYELOCYTES %M 2 % (0-0); MONOCYTES % (M) 5 % (0-11); MYELOCYTES % (M) 1 % (0-0); PLATELET ESTIMATE SIG DECREASED; POIKILOCYTOSIS 2+ (0-0); POLYCHROMASIA 2+ (0-0); SEG NEUT #M 0.8 10^3/ul (1.6-7.5); SEGMENTED NEUTROPHILS (M) % 55 % (39-77); SMUDGE%M 37 % (0-0)
[2018-08-28] MEDS ORDERED: CEFEPIME 1GM/50 ML (PMX) 50 ML IVPB (09:00)
== END 2018-08-27 12:06 | disposition expired | DRG 870 ==
LOC: E/R 10:29 → ICU 13:14
PROC: 5A1955Z Respiratory Ventilation, Greater than 96 Consecutive Hours (ICD-10-PCS; principal; 2018-08-21)
PROC: 02HV33Z Insertion of Infusion Device into Superior Vena Cava, Percutaneous Approach (ICD-10-PCS; 2018-08-21)
PROC: 30233N1 Transfusion of Nonautologous Red Blood Cells into Peripheral Vein, Percutaneous Approach (ICD-10-PCS; 2018-08-21)
DX: A41.52 Sepsis due to Pseudomonas (principal); R65.21 Severe sepsis with septic shock; L89.154 Pressure ulcer of sacral region, stage 4; L89.223 Pressure ulcer of left hip, stage 3; L89.893 Pressure ulcer of other site, stage 3; J18.9 Pneumonia, unspecified organism; D65 Disseminated intravascular coagulation [defibrination syndrome]; J86.0 Pyothorax with fistula; E44.0 Moderate protein-calorie malnutrition; Z68.1 Body mass index [BMI] 19.9 or less, adult; D62 Acute posthemorrhagic anemia; J96.10 Chronic respiratory failure, unspecified whether with hypoxia or hypercapnia; M86.9 Osteomyelitis, unspecified; J44.0 Chronic obstructive pulmonary disease with (acute) lower respiratory infection; Z99.81 Dependence on supplemental oxygen; I46.9 Cardiac arrest, cause unspecified; E11.65 Type 2 diabetes mellitus with hyperglycemia; Z51.5 Encounter for palliative care; Z93.1 Gastrostomy status; G40.909 Epilepsy, unspecified, not intractable, without status epilepticus; E11.69 Type 2 diabetes mellitus with other specified complication; I95.9 Hypotension, unspecified; Z85.841 Personal history of malignant neoplasm of brain; N28.9 Disorder of kidney and ureter, unspecified
CPT/HCPCS: 36430; 36569; 36600; 70450; 71045; 76937; 80048; 80053; 80202; 81001; 82150; 82728; 82803; 82962; 83036; 83540; 83605; 83690; 83735; 84100; 84443; 84484; 85025; 85049; 85362; 85378; 85384; 85610; 85670; 85730; 86850; 86900; 86901; 86920; 87040; 87070; 87081; 87086; 93005; 93306; 94002; 94003; 95819